=== PATIENT | male | born 1990 | race Caucasian/White ===

== ENCOUNTER 2017-08-18 21:33 | Emergency (ER) | payer SELFPAY ==
[2017-08-18 21:49] VITALS: BP 131/83; PULSE 72; TEMP 98.2; BMI 30.7
--- NOTE | 2017-08-18 22:19 | PDOC ---
History of Present Illness - General Chief Complaint: Rash Stated Complaint: RASH Time Seen by Provider: 08/18/17 22:15 - History of Present Illness Initial Comments: 08/18/17 22:17 CHIEF COMPLAINT: rash HISTORY OF PRESENT ILLNESS: 27 yo M with no PMH presents to [facility] with rash x 2-3 days. Patient denies any unusual food but reports using a new body soap "but I don't think that's it, I've used it for more than 3 days." Patient denies any fever, chills, nausea, vomiting, diarrhea. Denies shortness of breath , swelling to mouth, tongue, lips, throat, neck. No recent travel or sick contacts. PAST MEDICAL HISTORY: Denies past medical history FAMILY HISTORY: Denies SOCIAL HISTORY: Denies tobacco, alcohol, illicit drug use. SURGICAL HISTORY: Denies ALLERGIES: No known drug allergies REVIEW OF SYSTEMS General/Constitutional: Denies fever or chills. HEENT: Denies change in vision. Denies ear pain or discharge. Denies sore throat. Cardiovascular: Denies chest pain or shortness of breath. Respiratory: Denies cough, wheezing, or hemoptysis. Gastrointestinal: Denies nausea, vomiting, diarrhea or constipation. Denies rectal bleeding. Genitourinary: Denies dysuria, frequency, or change in urination. Musculoskeletal: Denies joint or muscle swelling or pain. Denies neck or back pain. Skin: Rash x 2-3 days. PHYSICAL EXAM General Appearance: Well-appearing, appropriately dressed. No apparent distress , no intoxication. HEENT: EOMI, PERRLA, TMs normal, pharynx normal. No conjunctival pallor. No photophobia, scleral icterus. Respiratory/Chest: Lungs CTAB. Cardiovascular: RRR. S1, S2. Musculoskeletal/Extremities: Normal inspection. FROM of all extremities, normal capillary refill. Pelvis Stable. No CVA tenderness. No tenderness to extremities, pedal edema, swelling, erythema or deformity. Integumentary: Diffuse, erythematous, macular rash to entire body. Appropriate color, dry, warm. No cyanosis, erythema, jaundice or rash Neurologic: mini shifter II-XII intact. Fully oriented, alert. Appropriate mood/affect. Motor strength 5/5. No appreciable EOM palsy, facial droop or sensory deficit. 08/18/17 22:29 Past History - Past Medical History Allergies/Adverse Reactions: Allergies Allergy/AdvReac Type Severity Reaction Status Date / Time No Known Allergies Allergy Verified 08/18/17 22:01 Home Medications: Ambulatory Orders Diphenhydramine HCl [Benadryl -] 25 mg PO Q6H PRN #28 capsule 08/18/17 - Suicide/Smoking/Psychosocial Hx Smoking History: Never smoked Have you smoked in the past 12 months: No Information on smoking cessation initiated: No Hx Alcohol Use: Yes (social) Drug/Substance Use Hx: Yes (marijuana) Substance Use Type: None *Physical Exam - Vital Signs Last Vital Signs Temp Pulse Resp BP Pulse Ox 98.2 F 72 18 131/83 99 08/18/17 21:45 08/18/17 21:45 08/18/17 21:45 08/18/17 21:45 08/18/17 21:45 Medical Decision Making - Medical Decision Making 08/18/17 22:33 27 yo M with no PMH presents to [facility] with diffuse rash to entire body. Clinical presentation consistent with urticaria. Benadryl 25 mg *DC/Admit/Observation/Transfer Diagnosis at time of Disposition: Urticaria - Discharge Dispostion Disposition: HOME Condition at time of disposition: Stable - Prescriptions Prescriptions: Diphenhydramine HCl [Benadryl -] 25 mg PO Q6H PRN #28 capsule PRN Reason: For Itching - Referrals Referrals: Sofía Queen MD [Staff Physician] - - Patient Instructions Printed Discharge Instructions: DI for Hives Additional Instructions: Please take medication as prescribed. As discussed, if your symptoms persist, please follow up with the customer solutions supervisor for further evaluation. If you develop any swelling of the throat, mouth, lips, tongue, or neck, or you develop any difficulty breathing, please return to the ER immediately.
[2017-08-18] MEDS ORDERED: diphenhydrAMINE HCL 25 MG CAPSULE (FP) PO ONE ×2 (22:33→22:35)
== END 2017-08-18 22:50 | disposition home or self-care (01) ==
LOC: JERFT 21:33
DX: L50.9 Urticaria, unspecified (principal)
CPT/HCPCS: 99281-25